=== PATIENT | male | born 1995 | race Caucasian/White ===

== ENCOUNTER 2023-12-01 14:18 | Emergency (ER) | payer SELFPAY ==
[2023-12-01 14:21] VITALS: BP 127/77; PULSE 94; RESP 14; TEMP 36.5; O2SAT 97
[2023-12-01 15:56] VITALS: BP 128/77; PULSE 72; RESP 15; O2SAT 98
--- NOTE | 2023-12-01 16:38 | EDS_ITS ---
HPI HPI - Psych History of Present Illness Chief Complaint: Mental Health Narrative Narrative: 28-year-old male presents with 2 complaints. The main reason he is here is because he wants to be evaluated by crisis for depression and bipolar disorder. He and his fianc?e state that they were supposed to see a psychiatrist in [place] today, but they turned him away because he does not have a definitive diagnosis of depression or bipolar disorder. They called the crisis counselor and they directed them to the emergency department, stating that we are to call them for evaluation. Patient denies any suicidal ideation or homicidal ideation but his fianc?e states that he is very volatile and territorial. When he gets angry, he wants to break things. Patient admits to this as well. He states that he took a medication for 2 days from someone who also had bipolar disorder and he was calm but he does not know the name of it. Wants to be started on medication to help control his anger issues. The other reason why he is here is that he states he has history of Crohn disease, and he vomited a few days ago. He has history of an esophageal tear, and was told that if he ever vomits blood again that he needs to be seen in the emergency department. He denies any fevers or chills, no current bernardino hematemesis. PFSH PFS Medical History Crohn disease Home Medications ?Medication ?Instructions ?Recorded ?Last Taken ?Type NK 12/01/23 Unknown History Allergy/AdvReac Type Severity Reaction Status Date / Time Iodinated Contrast Media Allergy Intermediate Hives Verified 12/01/23 14:26 (iodine dye) Penicillins Allergy Intermediate Hives Verified 12/01/23 14:26 Family History Mother Lupus Surgical History History of esophagogastroduodenoscopy (EGD) History of surgery on arm History of appendectomy Social History household members: spouse and children number of children: 2 current occupational status: employed Smoking Status: Current every day smoker tobacco type: smokeless tobacco ROS ROS ED ROS Narrative Constitutional: No fever, no chills. HEENT: No sore throat. No neck pain. No loss of vision. No rhinorrhea. Cardiovascular: No chest pain. No palpitations. No pedal edema. Respiratory: No cough, no shortness of breath. Abdominal: Positive abdominal pain. Vomited blood a few days ago, blood-tinged emesis. No bernardino hematemesis currently. Genitourinary: No dysuria. No hematuria. Musculoskeletal: No myalgias. No arthralgias. Neurologic: No headaches. No dizziness. No lightheadedness. Skin: No rash. No change in color. Psychiatric: Positive depression. No anxiety. Positive anger issues. EXAM Physical Exam Narrative Exam Narrative: Afebrile. Vital signs noted. HEENT: Normocephalic. Atraumatic. PERRL, EOMI. Neck soft and supple. No point tenderness or step off. Cardiovascular: Regular rate and rhythm. No murmurs, rubs, or gallops appreciated. Respiratory: No tachypnea. Lungs clear to auscultation bilaterally. Gastrointestinal: Abdomen soft, nontender, with normoactive bowel sounds. No rebound or guarding. Neurological: Awake. Alert. Nonfocal, nonlateralizing. Skin: No rash. Normal color. No pallor. Musculoskeletal: No pedal edema. Full range of motion extremities. Const Vital Signs: 12/01/23 14:21 12/01/23 15:56 Temperature 97.7 F L Temperature Source Temporal Pulse Rate 94 72 Respiratory Rate 14 15 Blood Pressure 127/77 H 128/77 H Blood Pressure Mean 93 94 Pulse Ox 97 98 Oxygen Delivery Method Room Air Room Air MDM MDM MDM Narrative Medical decision making narrative: I explained to the patient and his fianc?e that we do medical screening for crisis evaluation. Regarding his Crohn disease and reported hematemesis, I think he probably had a Shiloh-Herron tear that has resolved. Given his abdominal pain, he may be having more of a Crohn's exacerbation but I have low suspicion for obstruction because history and physical does not support this. I will obtain abdominal x-rays but I do feel that the medical screening labs with a CMP and a CBC would help rule out any acute process such as anemia requiring transfusion. I also explained to them that we do not automatically start medications from the emergency department. Once medically cleared he will be evaluated by crisis for either placement or close outpatient follow-up/IOP. I reviewed his laboratory work and he has a WBC count normal at 9.3 with hemoglobin 15.6, hematocrit 45.2, platelet count normal at 201. Chloride is slightly elevated at 110 which think is nonspecific, glucose elevated at 115 with an anion gap low at 4. AST is elevated at 75 which I think is nonspecific as well as ALT of 151. Urine for drugs of abuse is negative. Additionally ethyl alcohol is negative at less than 3. Abdominal series x-rays interpreted by myself independently shows no evidence of obstruction, no acute process in the chest. I do not think that he has an esophageal tear or Boerhaave's. Additionally, his reported hematemesis was a few days ago. Feel he can follow- up with gastroenterology as an outpatient. I feel he is medically cleared for evaluation by crisis. In discussion with the crisis counselor after evaluation, was not felt that he required emergent hospitalization. He is not suicidal, or homicidal. She had discussed with him outpatient follow-up and daytime programs, but he seemed reluctant to it. He had been told previously that antidepressants are not started through the emergency department and it should be started by either psychiatry through the counseling center or by her primary care provider as these medications need to be titrated. He will be discharged for follow-up either as an outpatient with the counseling center and [facility] was also [facility]. Crisis counselor stated that he was safety planned. Disposition is discharged in stable condition. History & Record Review Discussion w/independent historian: Patient and Significant other Lab Data Attestation: I reviewed the patient's lab results. Labs: Laboratory Results - last 24 hr 12/01/23 16:56 WBC 9.3 RBC 4.85 Hgb 15.6 Hct 45.2 MCV 93.2 MCH 32.2 H MCHC 34.5 RDW Std Deviation 42.4 RDW Coeff of Trice 12.2 Plt Count 201 MPV 10.6 Immature Gran % (Auto) 1.700 H Neut % (Auto) 66.2 Lymph % (Auto) 20.4 Coles % (Auto) 6.6 Eos % (Auto) 4.2 Baso % (Auto) 0.9 Absolute Neuts (auto) 6.2 Absolute Lymphs (auto) 1.90 Nucleated RBC % 0 Sodium 139 Potassium 3.9 Chloride 110 H Carbon Dioxide 25.0 Anion Gap 4 L BUN 15 Creatinine 0.88 Est GFR (MDRD) Af Amer 134 Est GFR (MDRD) Non-Af 111 BUN/Creatinine Ratio 17.1 Glucose 115 H Calcium 9.0 Total Bilirubin 0.50 AST 75 H ALT 151 H Alkaline Phosphatase 127 H Total Protein 6.2 L Albumin 3.9 Globulin 2.3 Albumin/Globulin Ratio 1.7 Urine Opiates Screen NEGATIVE Urine Methadone Screen NEGATIVE Ur Barbiturates Screen NEGATIVE Ur Phencyclidine Scrn NEGATIVE Ur Amphetamines Screen NEGATIVE MDMA (Ecstasy) Screen NEGATIVE U Benzodiazepines Scrn NEGATIVE Urine Cocaine Screen NEGATIVE U Cannabinoids Screen NEGATIVE Ur Drug Screen Comment Ethyl Alcohol < 3.0 Radiography Diagnostic Testing: Clinical Impression(s) from Imaging Studies Acute Abdomen Series 12/01/23 17:06 IMPRESSION: Negative chest and abdominal series. Electronically Signed: Geoffrey Pabon MD at 17:42 EDT , Discharge Plan Triage Chief Complaint: Mental Health ED Provider: Mitch Hdez Dx/Rx/DC Orders Clinical Impression: Outbursts of anger, Depression Instructions: ED Depression, ED Personality Disorder Prescriptions: No Action NK Primary Care Provider: Care Physician,No Primary Referrals: Counseling,Center [Group of Physicians] - As soon as possible [facility] [Non-Staff] - As soon as possible Care Physician,No Primary [Primary Care Provider] - Activity Restrictions/Additional Instructions: Follow-up with your primary care provider or the counseling center soon as possible. Print Language: Croatian Disposition Disposition: Home, Self Care
--- NOTE | 2023-12-01 17:06 | RAD_ITS ---
EXAM: XR ABDOMEN, 2 VIEWS AND XR CHEST, 1 VIEW CLINICAL INDICATION: Pain TECHNIQUE: Frontal view of the chest, frontal view of the abdomen/pelvis and upright or decubitus view of the abdomen. COMPARISON: No relevant prior studies available. FINDINGS: CHEST: LUNGS AND PLEURAL SPACES: Unremarkable. No consolidation or edema. No pneumothorax. No effusion. HEART: Unremarkable. Cardiac silhouette not enlarged. MEDIASTINUM: Central airways and mediastinal contour are unremarkable. ABDOMEN: INTRAPERITONEAL SPACE: No free air. GASTROINTESTINAL TRACT: Unremarkable. Non-obstructive. No bowel or stomach distention. ORGANS: Unremarkable as visualized. No organomegaly. No abnormal calcifications. TUBES, LINES AND DEVICES: None. BONES/JOINTS: No acute findings. SOFT TISSUES: No acute findings. RAD/Acute Abdomen Inc Chest IMPRESSION: Negative chest and abdominal series. Electronically Signed: Geoffrey Pabon MD at 17:42 EDT ,
[2023-12-01 17:12] LABS: Absolute Neutrophil Count 6.2 X10^3/uL (2.0-7.7); Basophil# 0.08 X10^3/uL; Basophil% 0.9 % (0-1); Eosinophil# 0.39 X10^3/uL; Eosinophils% 4.2 % (0-5); Hematocrit 45.2 % (40-54); Hemoglobin 15.6 g/dL (13.0-16.5); Lymphocyte % 20.4 % (19-41); Mean Corp Hgb Conc 34.5 g/dL (32-36); Mean Corpuscular Hgb 32.2 pg (27.0-32.0); Mean Corpuscular Volume 93.2 fL (80-94); Mean Platelet Vol. 10.6 fl (6.2-12.0); Monocyte# 0.62 X10^3/uL; Monocyte% 6.6 % (0-10); NRBC Flagged by Analyzer 0 % (0-5); Neutrophil # 6.18 X10^3/uL (2.7-7.7); Neutrophil % 66.2 % (47-70); Platelet Count 201 K/mm3 (150-450); RBC Distribution Width CV 12.2 % (11.6-14.6); RBC Distribution Width SD 42.4 fl (35.1-43.9); Red Blood Count 4.85 M/mm3 (4.6-6.2); White Blood Count 9.3 K/mm3 (4.4-11.0)
[2023-12-01 17:32] LABS: Alcohol, Blood (Medical)-Serum < 3.0 mg/dL
[2023-12-01 17:35] LABS: ALB/GLOB Ratio 1.7 RATIO (0.9-2.4); AST(SGOT) 75 U/L (15-37); Alanine Aminotransfer ALT/SGPT 151 U/L (16-61); Albumin, Serum 3.9 g/dL (3.2-5.0); Alkaline Phosphatase 127 U/L (45-117); Anion Gap 4 (5-15); BUN 15 mg/dL (7-18); BUN/Creat Ratio 17.1 RATIO (10-20); Chloride 110 mmol/L (98-107); Creatinine, Serum 0.88 mg/dL (0.70-1.30); EST Glomerular Filtration Rate 111 mL/min (>60); Est Glom Filt Rate - Afr Amer 134 mL/min (>60); Globulin 2.3 g/dL (2.2-4.2); Glucose 115 mg/dL (74-106); Potassium 3.9 mmol/L (3.5-5.1); Protein, Total 6.2 g/dL (6.4-8.2); Sodium Level 139 mmol/L (136-145)
[2023-12-01 19:03] LABS: Amphetamine Urine VISTA NEGATIVE (<1000 ng/mL); Barbiturate Urine VISTA NEGATIVE (< 200 ng/mL); Benzodiazepine Urine VISTA NEGATIVE (< 200 ng/mL); Cocaine Urine VISTA NEGATIVE (< 300 ng/mL); Ecstacy Urine VISTA NEGATIVE (< 500 ng/mL); Methadone Urine VISTA NEGATIVE (< 300 ng/mL); PCP Urine VISTA NEGATIVE (< 25 ng/mL); THC Urine VISTA NEGATIVE (< 50 ng/mL); Vista UDS pH Range 6
--- NOTE | 2023-12-01 19:39 | ED.RN ---
MEDICALLY CLEARED, CRISIS CALLED, CHART FAXED.
[2023-12-01 21:18] VITALS: BP 137/97; PULSE 77; RESP 15; TEMP 36.8; O2SAT 98
== END 2023-12-01 21:20 | disposition home or self-care (01) ==
PROVIDERS: Emergency Provider Emergency Medicine; Visit Provider Emergency Medicine
DX: F32.A Depression, unspecified (principal); F17.220 Nicotine dependence, chewing tobacco, uncomplicated
CPT/HCPCS: 74022; 80053; 80307; 80320; 85025; 99282; G0480